=== PATIENT | female | born 1945 | race African-American/Black ===

== ENCOUNTER 2022-05-16 12:17 | Inpatient (IN) | payer MEDICARE, OTHER ==
[2022-05-16] MEDS ORDERED: SODIUM CHLORIDE 1,000 ML IV STA (12:44)
[2022-05-16 12:59] LABS: HEMATOCRIT 30.8 % (32.4-45.2); HEMOGLOBIN 10.8 G/dL (10.7-15.3); MCH 31.9 pg (25.7-33.7); MEAN PLT VOLUME 9.3 fl (7.5-11.1); PLATELET COUNT 99.9 10^3/uL (134-434); RBC 3.38 10^6/uL (3.60-5.2); RDW 16.4 % (11.6-15.6); WHITE BLOOD COUNT 2.4 10^3/uL (4.0-10.8)
[2022-05-16 13:20] LABS: ALBUMIN 3.4 g/dl (3.4-5.0); BILIRUBIN,TOTAL 1.1 mg/dl (0.2-1); CREATININE 0.8 mg/dl (0.55-1.3); TOT PROT 5.2 g/dl (6.4-8.2)
[2022-05-16 13:23] LABS: PLATELET ESTIMATE DECREASED
[2022-05-16 13:37] LABS: MAGNESIUM 1.8 mg/dL (1.8-2.4)
[2022-05-16] MEDS ORDERED: POTASSIUM CHLORIDE 20 MEQ PREMIX IVPB 100 ML IVPB ONE (14:21)
[2022-05-16] MEDS ORDERED: POTASSIUM CHLORIDE ORAL LIQUID 20 MEQ/15 ML PO ONE (14:21)
[2022-05-16] MEDS ORDERED: POTASSIUM CHLORIDE ORAL LIQUID 20 MEQ/15 ML ONE (14:41)
[2022-05-16] MEDS ORDERED: KCL 10 MEQ IVPB 10 MEQ/100 ML INFUS.BAG IVPB ONE ×2 (15:10→16:41)
[2022-05-16] MEDS: KCL 10 MEQ IVPB 10 MEQ/100 ML INFUS.BAG IVPB SCH ×4 (15:15→19:45)
[2022-05-16 16:12] LABS: PHOSPHOROUS 2.8 mg/dl (2.5-4.9)
[2022-05-16] MEDS ORDERED: RIVAROXABAN 20 MG TABLET PO SCH (18:00)
[2022-05-17 01:48] LABS: BLOOD UREA NITROGEN 9.4 mg/dL (7-18)
[2022-05-17 01:51] LABS: CREATININE 0.8 mg/dL (0.55-1.3)
[2022-05-17 01:53] LABS: CALCIUM 8.2 mg/dL (8.5-10.1)
[2022-05-17] MEDS ORDERED: PATIENT'S OWN MEDICATION (NON-FORMULARY) (Fluticasone Propionate [Flovent Diskus] 50 MCG B IH PRN (05:07)
[2022-05-17 07:37] LABS: BASO % 0.3 % (0-2.0); EOS % 2.6 % (0-4.5); HEMATOCRIT 30.5 % (32.4-45.2); HEMOGLOBIN 10.4 GM/dL (10.7-15.3); LYMPH % 28.6 % (8-40); MCH 30.9 pg (25.7-33.7); MCHC 34.2 g/dl (32.0-36.0); MEAN CELL VOLUME 90.4 fl (80-96); MEAN PLT VOLUME 9.1 fl (7.5-11.1); MONO % 12.1 % (3.8-10.2); NEUT % 56.4 % (42.8-82.8); PLATELET COUNT 99 10^3/uL (134-434); RBC 3.37 M/mm3 (3.60-5.2); RDW 16.1 % (11.6-15.6); WHITE BLOOD COUNT 2.2 K/mm3 (4.0-10.0)
[2022-05-17 07:51] LABS: ALBUMIN 3.1 g/dl (3.4-5.0); CALCIUM 8.1 mg/dL (8.5-10.1); MAGNESIUM 1.9 mg/dL (1.8-2.4)
[2022-05-17 07:54] LABS: PHOSPHOROUS 2.6 mg/dL (2.5-4.9)
[2022-05-17 07:55] LABS: CREATININE 0.7 mg/dL (0.55-1.3)
[2022-05-17 07:56] LABS: BILIRUBIN,TOTAL 0.9 mg/dL (0.2-1); TOT PROT 5.2 g/dl (6.4-8.2)
[2022-05-17 08:02] LABS: BLOOD UREA NITROGEN 6.1 mg/dL (7-18)
[2022-05-17] MEDS ORDERED: RIVAROXABAN 20 MG TABLET PO SCH (10:00)
[2022-05-17] MEDS ORDERED: metoPROLOL SUCCINATE 25 MG TAB.SR.24H (FP) PO SCH (10:00)
[2022-05-17] MEDS ORDERED: LENALIDOMIDE 15 MG PO SCH (10:00)
[2022-05-17 14:04] VITALS: TEMP 98
[2022-05-17 15:07] VITALS: BP 113/74; PULSE 61; RESP 16
[2022-05-17] MEDS ORDERED: MOMETASONE FUROATE 220 MCG/IH INHALER IH SCH (22:00)
== END 2022-05-17 18:40 | disposition left against medical advice (07) | DRG 640 ==
LOC: FER 12:17 → FM/S 13:43 → J2W 23:33
PROVIDERS: ATTEND Internal Medicine
DX: E87.6 Hypokalemia (principal); U07.1 COVID-19; R55 Syncope and collapse; E87.1 Hypo-osmolality and hyponatremia; I10 Essential (primary) hypertension; E78.5 Hyperlipidemia, unspecified; I48.91 Unspecified atrial fibrillation; E86.0 Dehydration
CPT/HCPCS: 0241U-QW; 36415; 71046-TC-FY; 80048; 80053; 80061; 81003; 82962; 83036; 83735; 83880; 83930; 84100; 84300; 84443; 84484; 85025; 86140; 87086; 93005; 99285-25